=== PATIENT | female | born 1990 | race Caucasian/White ===

== ENCOUNTER 2017-01-12 16:59 | Emergency (ER) | payer OTHER ==
[~2017-01-12] VITALS: Ht 177.8 cm; Wt 64.4 kg
[2017-01-12 17:03] VITALS: BP 118/77
--- NOTE | 2017-01-12 17:33 | NUR ---
Patient ambulated to [facility] with family to be evaluated as fast track by Dr. Ray.
--- NOTE | 2017-01-12 17:35 | NUR ---
Dr. Ray evaluating patient as fast track in OF.
--- NOTE | 2017-01-12 17:38 | NUR ---
PATIENT IS A 26 YO FEMALE BIB SELF FOR EAR ACHE. AWAKE AND ALERT ABLE TO AMBULATE REPORTS BEING 16 WEEKS . TO OVERFLOW 1 FOR MD ISLAS.
[2017-01-12] MEDS ORDERED: ACETAMINOPHEN EXTRA STRENGTH 500 MG TAB PO ONE (17:40)
[2017-01-12 18:07] VITALS: BP 118/77
--- NOTE | 2017-01-12 18:07 | NUR ---
Patient discharged with v/s stable. Written and verbal after care instructions given and explained. Patient alert, oriented and verbalized understanding of instructions. Ambulatory with steady gait. All questions addressed prior to discharge. ID band removed. Patient advised to follow up with PMD. Rx of TYLENOL ES AND OTIC DROPS given. Patient educated on indication of medication including possible reaction and side effects. Opportunity to ask questions provided and answered.
== END 2017-01-12 18:06 | disposition home or self-care (01) ==
LOC: MED 16:59
DX: O26.892 Other specified pregnancy related conditions, second trimester (principal); H60.91 Unspecified otitis externa, right ear; Z3A.16 16 weeks gestation of pregnancy; Z88.0 Allergy status to penicillin
CPT/HCPCS: 36415; 81025; 99283

== ENCOUNTER 2017-03-12 08:25 | Outpatient (CLI) | payer OTHER | END 2017-03-12 21:08 | disposition home or self-care (01) | LOC: MLB 08:25 | PROVIDERS: ATTEND Obstetrics & Gynecology | DX: Z33.1 Pregnant state, incidental (principal) ==

== ENCOUNTER 2017-04-17 11:10 | Outpatient (CLI) | payer OTHER ==
[2017-04-18] MEDS ORDERED: PREN-546 PO (17:43)
== END 2017-04-17 21:44 | disposition home or self-care (01) ==
LOC: MLB 11:10
PROVIDERS: ATTEND Obstetrics & Gynecology
DX: Z33.1 Pregnant state, incidental (principal)
CPT/HCPCS: 36415; 86886; 86900; 86901

== ENCOUNTER 2017-04-18 14:00 | Observation (INO) | payer OTHER ==
[~2017-04-18] VITALS: Ht 175.3 cm; Wt 73.5 kg
[2017-04-18 14:31] VITALS: BP 102/68
[2017-04-18] MEDS ORDERED: PREN-546 PO (17:43)
== END 2017-04-18 19:46 | disposition home or self-care (01) ==
LOC: MLD 14:00
PROVIDERS: ADMIT Obstetrics & Gynecology; ATTEND Obstetrics & Gynecology
DX: O42.913 Preterm premature rupture of membranes, unspecified as to length of time between rupture and onset of labor, third trimester (principal); Z3A.30 30 weeks gestation of pregnancy
CPT/HCPCS: 36415; 76819; 86886; 86900; 86901; 96372; G0378; J2790; Q0092

== ENCOUNTER 2017-05-25 16:55 | Outpatient (CLI) | payer OTHER ==
[~2017-05-25 16:55] MED LIST: PREN-546 PO
[2017-05-25 17:17] LABS: BASOPHILS # (AUTO) 0.1 K/uL (0.00-0.22); BASOPHILS % (AUTO) 0.9 % (0.0-2.0); EOSINOPHILS # (AUTO) 0.2 K/uL (0-0.4); EOSINOPHILS % (AUTO) 2.2 % (0.0-4.0); HEMATOCRIT 34.6 % (36-48); HEMOGLOBIN 11.6 g/dL (12.0-16.0); LYMPHOCYTES # (AUTO) 1.5 K/uL (2.5-16.5); LYMPHOCYTES % (AUTO) 18.7 % (20.5-51.1); MEAN CORPUSCULAR HEMOGLOBIN 30 pg (27-31); MEAN CORPUSCULAR HGB CONC 33 g/dL (33-37); MEAN CORPUSCULAR VOLUME 89 fL (80-94); MONOCYTES # (AUTO) 0.6 K/uL (0.8-1.0); MONOCYTES % (AUTO) 7.3 % (1.7-9.3); NEUTROPHILS # (AUTO) 5.6 K/uL (1.8-7.7); NEUTROPHILS % (AUTO) 70.9 % (42.2-75.2); PLATELET COUNT (AUTO) 147 K/uL (140-450); RED BLOOD CELL COUNT(AUTO) 3.88 MIL/uL (4.20-5.40); RED CELL DISTRIBUTION WIDTH 12.5 % (11.6-13.7)
== END 2017-05-25 20:26 | disposition home or self-care (01) ==
LOC: MLB 16:55
PROVIDERS: ATTEND Obstetrics & Gynecology
DX: Z33.1 Pregnant state, incidental (principal)
CPT/HCPCS: 36415; 85025; 86592

== ENCOUNTER 2017-06-26 10:02 | Inpatient (IN) | payer OTHER ==
[~2017-06-26] VITALS: Ht 175.3 cm; Wt 82.6 kg
[2017-06-26 10:33] VITALS: BP 107/76
[2017-06-26] MEDS ORDERED: LACTATED RINGERS 1,000 ML IV SCH (11:06)
[2017-06-26] MEDS ORDERED: OXYTOCIN 10 UNITS/ML VIAL IM SCH (11:10)
[2017-06-26] MEDS ORDERED: NALBUPHINE HYDROCHLORIDE 10 MG/ML VIAL IVP PRN (11:10)
[2017-06-26] MEDS ORDERED: PROMETHAZINE 25 MG/ML VIAL IVP PRN (11:10)
[2017-06-26] MEDS ORDERED: CARBOPROST 250 MCG/ML AMP IM PRN (11:10)
[2017-06-26] MEDS ORDERED: METHYLERGONOVINE 0.2 MG/ML AMP IM PRN ×2 (11:10→22:25)
[2017-06-26 12:23] LABS: BASOPHILS # (AUTO) 0.1 K/uL (0.00-0.22); EOSINOPHILS # (AUTO) 0.1 K/uL (0-0.4); EOSINOPHILS % (AUTO) 0.9 % (0.0-4.0); HEMATOCRIT 30.3 % (36-48); HEMOGLOBIN 10.3 g/dL (12.0-16.0); LYMPHOCYTES # (AUTO) 1.1 K/uL (2.5-16.5); LYMPHOCYTES % (AUTO) 13.5 % (20.5-51.1); MEAN CORPUSCULAR HEMOGLOBIN 30 pg (27-31); MEAN CORPUSCULAR HGB CONC 34 g/dL (33-37); MEAN CORPUSCULAR VOLUME 88 fL (80-94); MONOCYTES # (AUTO) 0.5 K/uL (0.8-1.0); MONOCYTES % (AUTO) 6.2 % (1.7-9.3); NEUTROPHILS # (AUTO) 6.7 K/uL (1.8-7.7); NEUTROPHILS % (AUTO) 78.4 % (42.2-75.2); PLATELET COUNT (AUTO) 117 K/uL (140-450); RED BLOOD CELL COUNT(AUTO) 3.45 MIL/uL (4.20-5.40); RED CELL DISTRIBUTION WIDTH 12.9 % (11.6-13.7); WHITE BLOOD COUNT (AUTO) 8.5 K/uL (4.8-10.8)
[2017-06-26 12:33] LABS: APPEARANCE,URINE CLEAR (CLEAR); BILIRUBIN,URINE NEGATIVE (NEGATIVE); BLOOD, URINE NEGATIVE (NEGATIVE); COLOR,URINE YELLOW (YELLOW); LEUKOCYTE ESTERASE ,URINE NEGATIVE (NEGATIVE); NITRITE, URINE NEGATIVE (NEGATIVE); PH,URINE 6.5 (5.0-9.0); UGLUCOSE NEGATIVE (NEGATIVE)
[2017-06-26 12:38] LABS: CARBON DIOXIDE 21.1 mmol/L (21-32); CREATININE 0.6 mg/dL (0.6-1.3); POTASSIUM 4.1 mmol/L (3.5-5.1)
[2017-06-26] MEDS ORDERED: MISOPROSTOL 25 MCG TAB ONE (12:44)
[2017-06-26 12:48] LABS: ALBUMIN 2.4 g/dL (3.4-5.0); TOTAL BILIRUBIN 0.1 mg/dL (0.0-1.0)
[2017-06-26] MEDS ORDERED: PROMETHAZINE 25 MG/ML VIAL ONE (19:03)
[2017-06-26] MEDS ORDERED: NALBUPHINE HYDROCHLORIDE 10 MG/ML VIAL ONE (19:03)
[2017-06-26] MEDS ORDERED: BUPIVACAINE 0.125%/NS PREMIX 250 ML ONE (19:51)
[2017-06-26] MEDS ORDERED: OXYTOCIN 20 UNITS in LACTATED RINGERS 1,000 ML IV SCH (20:55)
[2017-06-26] MEDS ORDERED: OXYTOCIN 20 UNITS/LR PREMIX 1,000 ML IV ONE (21:29)
[2017-06-26] MEDS ORDERED: OXYTOCIN 10 UNITS/ML VIAL ONE (22:02)
[2017-06-26] MEDS ORDERED: OXYTOCIN 10 UNITS/ML VIAL IM PRN (22:25)
[2017-06-26] MEDS ORDERED: MEASLES, MUMPS, AND RUBELLA 1 VIAL SQVAC PRN (22:25)
[2017-06-26] MEDS ORDERED: oxyCODONE/APAP 5/325 MG 1 TAB TAB PO PRN (22:25)
[2017-06-26] MEDS ORDERED: TEMAZEPAM 15 MG CAP PO PRN (22:25)
[2017-06-26] MEDS ORDERED: IBUPROFEN 800 MG TAB PO PRN (22:25)
[2017-06-26] MEDS ORDERED: HYDROcodone/APAP 5/325 MG 1 TAB TAB PO PRN (22:25)
[2017-06-26] MEDS ORDERED: BENZOCAINE/MENTHOL 20%-0.5% 60 GM CAN TP PRN (22:25)
--- NOTE | 2017-06-27 06:58 | NUR ---
PATIENT HAS BEEN SCREENED AND CATEGORIZED LOW NUTRITION RISK. PATIENT WILL BE SEEN WITHIN 7 DAYS OF ADMISSION. 07/03/17 SCOTT HURD MS, RDN
[2017-06-27 07:20] LABS: HEMATOCRIT 32.5 % (36-48)
[2017-06-27] MEDS ORDERED: DOCUSATE SOD/SENNA 50/8.6 MG 1 TAB PO SCH (21:00)
[2017-06-28] MEDS ORDERED: IBUP-2217 PO (09:32)
== END 2017-06-28 12:00 | disposition home or self-care (01) | DRG 775 ==
LOC: MLD 10:02 → MFCC 06-27 02:32
PROVIDERS: ADMIT Obstetrics & Gynecology; ATTEND Obstetrics & Gynecology
PROC: 10E0XZZ Delivery of Products of Conception, External Approach (ICD-10-PCS; principal; 2017-06-26)
PROC: 3E0R3BZ Introduction of Anesthetic Agent into Spinal Canal, Percutaneous Approach (ICD-10-PCS; 2017-06-26)
PROC: 00HU33Z Insertion of Infusion Device into Spinal Canal, Percutaneous Approach (ICD-10-PCS; 2017-06-26)
PROC: 30233S1 Transfusion of Nonautologous Globulin into Peripheral Vein, Percutaneous Approach (ICD-10-PCS; 2017-06-26)
DX: O48.0 Post-term pregnancy (principal); O89.4 Spinal and epidural anesthesia-induced headache during the puerperium; Z37.0 Single live birth; Z3A.40 40 weeks gestation of pregnancy
CPT/HCPCS: 36415; 51702; 59200; 80053; 81003; 85018; 85025; 86592; 86762; 86850; 86870; 86886; 86900; 86901; 87340; J2300; J2550; J2590; J2790; J3490; J7120

== ENCOUNTER 2017-07-29 09:05 | Outpatient (CLI) | payer OTHER ==
[~2017-07-29 09:05] MED LIST changes: +IBUP-2217 PO
[2017-07-29 09:36] LABS: BASOPHILS # (AUTO) 0.1 K/uL (0.00-0.22); BASOPHILS % (AUTO) 2.2 % (0.0-2.0); EOSINOPHILS # (AUTO) 0.2 K/uL (0-0.4); EOSINOPHILS % (AUTO) 4.8 % (0.0-4.0); HEMOGLOBIN 12.7 g/dL (12.0-16.0); LYMPHOCYTES # (AUTO) 1.5 K/uL (2.5-16.5); LYMPHOCYTES % (AUTO) 31.2 % (20.5-51.1); MEAN CORPUSCULAR HEMOGLOBIN 29 pg (27-31); MEAN CORPUSCULAR HGB CONC 33 g/dL (33-37); MEAN CORPUSCULAR VOLUME 88 fL (80-94); MONOCYTES # (AUTO) 0.4 K/uL (0.8-1.0); MONOCYTES % (AUTO) 7.3 % (1.7-9.3); NEUTROPHILS # (AUTO) 2.7 K/uL (1.8-7.7); NEUTROPHILS % (AUTO) 54.5 % (42.2-75.2); PLATELET COUNT (AUTO) 177 K/uL (140-450); RED BLOOD CELL COUNT(AUTO) 4.34 MIL/uL (4.20-5.40); RED CELL DISTRIBUTION WIDTH 11.7 % (11.6-13.7); WHITE BLOOD COUNT (AUTO) 4.9 K/uL (4.8-10.8)
[2017-07-29 09:52] LABS: ALBUMIN 3.7 g/dL (3.4-5.0); ANION GAP 10.8 (8-16); CARBON DIOXIDE 28.4 mmol/L (21-32); CHOL/HDL RATIO 2.6 (1-4.5); CREATININE 0.8 mg/dL (0.6-1.3); POTASSIUM 4.2 mmol/L (3.5-5.1); TOTAL BILIRUBIN 0.3 mg/dL (0.0-1.0)
== END 2017-07-29 20:12 | disposition home or self-care (01) ==
LOC: MLB 09:05
PROVIDERS: ATTEND Obstetrics & Gynecology
DX: Z39.2 Encounter for routine postpartum follow-up (principal)
CPT/HCPCS: 36415; 80053; 85025

== ENCOUNTER 2018-09-22 07:06 | Outpatient (CLI) | payer OTHER ==
[2018-09-22 08:12] LABS: APPEARANCE,URINE CLEAR (CLEAR); BILIRUBIN,URINE NEGATIVE (NEGATIVE); BLOOD, URINE NEGATIVE (NEGATIVE); COLOR,URINE YELLOW (YELLOW); LEUKOCYTE ESTERASE ,URINE NEGATIVE (NEGATIVE); NITRITE, URINE NEGATIVE (NEGATIVE); UGLUCOSE NEGATIVE (NEGATIVE)
[2018-09-22 08:35] LABS: BASOPHILS % (AUTO) 0.4 % (0.0-2.0); EOSINOPHILS # (AUTO) 0.2 K/uL (0-0.4); EOSINOPHILS % (AUTO) 4.8 % (0.0-4.0); HEMATOCRIT 37.9 % (36-48); HEMOGLOBIN 12.8 g/dL (12.0-16.0); LYMPHOCYTES # (AUTO) 1.6 K/uL (2.5-16.5); LYMPHOCYTES % (AUTO) 34.7 % (20.5-51.1); MEAN CORPUSCULAR HEMOGLOBIN 30 pg (27-31); MEAN CORPUSCULAR HGB CONC 34 g/dL (33-37); MEAN CORPUSCULAR VOLUME 87.3 fL (80-94); MONOCYTES # (AUTO) 0.3 K/uL (0.8-1.0); MONOCYTES % (AUTO) 6.2 % (1.7-9.3); NEUTROPHILS # (AUTO) 2.5 K/uL (1.8-7.7); NEUTROPHILS % (AUTO) 53.9 % (42.2-75.2); PLATELET COUNT (AUTO) 192 K/uL (140-450); RED BLOOD CELL COUNT(AUTO) 4.34 MIL/uL (4.20-5.40); RED CELL DISTRIBUTION WIDTH 13.3 % (11.6-13.7); WHITE BLOOD COUNT (AUTO) 4.6 K/uL (4.8-10.8)
[2018-09-22 09:42] LABS: ALBUMIN 3.4 g/dL (3.4-5.0); ANION GAP 9.9 (8-16); CARBON DIOXIDE 27.8 mmol/L (21-32); CHOL/HDL RATIO 2.8 (1-4.5); CREATININE 0.7 mg/dL (0.6-1.3); FREE T4 (FREE THYROXINE) 0.96 ng/dL (0.76-1.46); POTASSIUM 3.7 mmol/L (3.5-5.1); THYROID STIMULATING HORMONE 1.23 uIU/mL (0.34-3.74); TOTAL BILIRUBIN 0.3 mg/dL (0.0-1.0)
== END 2018-09-22 20:14 | disposition home or self-care (01) ==
LOC: MLB 07:06
PROVIDERS: ATTEND Family Medicine Geriatric Medicine
DX: Z13.21 Encounter for screening for nutritional disorder (principal); Z13.228 Encounter for screening for other metabolic disorders; Z13.0 Encounter for screening for diseases of the blood and blood-forming organs and certain disorders involving the immune mechanism; Z13.1 Encounter for screening for diabetes mellitus; Z13.220 Encounter for screening for lipoid disorders
CPT/HCPCS: 36415; 80053; 81003; 82306; 83036; 84439; 84443; 85025

== ENCOUNTER 2019-05-29 11:15 | Emergency (ER) | payer OTHER ==
[~2019-05-29] VITALS: Ht 149.9 cm; Wt 68.9 kg
--- NOTE | 2019-05-29 11:20 | NUR ---
PT AMBULATED TO BED 06.
[2019-05-29 11:23] VITALS: BP 117/79
--- NOTE | 2019-05-29 11:28 | NUR ---
28 Y/O F C/O RT EAR PAIN 12/15 X 1 DAY. PT DENIES N/V/F, TOOK TYLENOL AT HOME FOR PAIN. EARS A FREE OF REDNESS, WAX, DRAINAGE BILATERALY. PT STATES SHE HAD A COLD LAST WEEK, OTHERS IN HER HOUSEHOLD ARE SICK WELL. PT POSITIONED FOR COMFORT, BED LOWERED, SIDE RAIL X1 IN PLACE. MEDHX: NONE
--- NOTE | 2019-05-29 11:52 | NUR ---
URINE HCG NEGATIVE. ADVISED.
[2019-05-29] MEDS ORDERED: IBUPROFEN 800 MG TAB PO ONE (11:55)
[2019-05-29] MEDS ORDERED: hydrOXYzine HCL 25 MG TAB PO ONE (11:55)
[2019-05-29 12:29] VITALS: BP 117/79
--- NOTE | 2019-05-29 12:30 | NUR ---
Patient discharged with v/s stable. Written and verbal after care instructions given and explained. Patient alert, oriented and verbalized understanding of instructions. Ambulatory with steady gait. All questions addressed prior to discharge. ID band removed. Patient advised to follow up with PMD. Rx of CIPRO/CORTISPORIN OTIC/TRAMADOL given. Patient educated on indication of medication including possible reaction and side effects. Opportunity to ask questions provided and answered.
== END 2019-05-29 12:30 | disposition home or self-care (01) ==
LOC: MED 11:15
DX: H60.8X1 Other otitis externa, right ear (principal); Z88.0 Allergy status to penicillin
CPT/HCPCS: 81025; 99283

== ENCOUNTER 2019-11-28 07:32 | Outpatient (CLI) | payer OTHER ==
[2019-11-28 08:18] LABS: BASOPHILS % (AUTO) 0.3 % (0.0-2.0); EOSINOPHILS # (AUTO) 0.1 K/uL (0-0.4); EOSINOPHILS % (AUTO) 1.8 % (0.0-4.0); HEMATOCRIT 39.2 % (36-48); HEMOGLOBIN 13.1 g/dL (12.0-16.0); LYMPHOCYTES # (AUTO) 1.6 K/uL (2.5-16.5); LYMPHOCYTES % (AUTO) 25.4 % (20.5-51.1); MEAN CORPUSCULAR HEMOGLOBIN 30 pg (27-31); MEAN CORPUSCULAR HGB CONC 34 g/dL (33-37); MEAN CORPUSCULAR VOLUME 89.4 fL (80-94); MONOCYTES # (AUTO) 0.3 K/uL (0.8-1.0); MONOCYTES % (AUTO) 5.4 % (1.7-9.3); NEUTROPHILS # (AUTO) 4.3 K/uL (1.8-7.7); NEUTROPHILS % (AUTO) 67.1 % (42.2-75.2); PLATELET COUNT (AUTO) 216 K/uL (140-450); RED BLOOD CELL COUNT(AUTO) 4.39 MIL/uL (4.20-5.40); RED CELL DISTRIBUTION WIDTH 13.1 % (11.6-13.7); WHITE BLOOD COUNT (AUTO) 6.4 K/uL (4.8-10.8)
[2019-11-28 08:45] LABS: ALBUMIN 3.7 g/dL (3.4-5.0); ANION GAP 14.4 (8-16); CARBON DIOXIDE 26.5 mmol/L (21-32); CHOL/HDL RATIO 3.3 (1-4.5); CREATININE 0.7 mg/dL (0.6-1.3); POTASSIUM 3.9 mmol/L (3.5-5.1); THYROID STIMULATING HORMONE 1.64 uIU/mL (0.34-3.74); TOTAL BILIRUBIN 0.3 mg/dL (0.0-1.0)
[2019-11-28 09:55] LABS: APPEARANCE,URINE CLEAR (CLEAR); BILIRUBIN,URINE NEGATIVE (NEGATIVE); BLOOD, URINE NEGATIVE (NEGATIVE); COLOR,URINE YELLOW (YELLOW); LEUKOCYTE ESTERASE ,URINE NEGATIVE (NEGATIVE); NITRITE, URINE NEGATIVE (NEGATIVE); PH,URINE 6.5 (5.0-9.0); UGLUCOSE NEGATIVE (NEGATIVE)
[2019-11-29 09:11] LABS: T4 FREE (DIRECT) 1.11 ng/dL (0.82-1.77)
== END 2019-11-28 20:42 | disposition home or self-care (01) ==
LOC: MLB 07:32
DX: Z13.1 Encounter for screening for diabetes mellitus (principal); Z13.0 Encounter for screening for diseases of the blood and blood-forming organs and certain disorders involving the immune mechanism; Z13.21 Encounter for screening for nutritional disorder; Z13.228 Encounter for screening for other metabolic disorders; Z13.220 Encounter for screening for lipoid disorders
CPT/HCPCS: 36415; 80053; 81003; 82306; 83036; 84439; 84443; 85025